=== PATIENT | male | born 1950 | race Caucasian/White ===

== ENCOUNTER → 2021-03-19 | Outpatient (CLI) | payer MEDICARE, OTHER ==
[~2021-03-19] MED LIST: BUMETANIDE1 MG PO; BUMETANIDE2 MG PO; CEFDINIR300 MG PO; COLACE 100MG C100 MG PO; COMBIVENT0.074 GM/I INH; DIAMOX 250 MG250 MG PO; ECOTRIN81 MG PO; ELIQUIS2.5 MG PO; FEOSOL325 MG PO; FOLIC ACID 1 MG1 MG PO; HYDRALAZINE HC100 MG PO; HYDRALAZINE HCL50 MG PO; IMDUR ER TAB 6060 MG PO; K-DUR TAB 20 M20 MEQ PO; KLONOPIN TAB 00.5 MG PO; LASIX20 MG PO; LASIX40 MG PO; LEVEMIR100 UNIT/1 SQ; LIPITOR TAB 2020 MG PO; LOPRESSOR 25 MG25 MG PO; LOPRESSOR50 MG PO; MICROZIDE12.5 MG PO; NITROSTAT0.4 MG SL; NOVOLOG 10100 UNITS1 SC; NOVOLOG100 UNIT/1 SQ; PAXIL40 MG PO; PROTONIX40 MG PO; SENNA8.6 MG PO; SOTALOL80 MG PO; TYLENOL 500 MG500 MG PO; XARELTO10 MG PO
== END ==
LOC: KOH-I 11:57
DX: R06.02 Shortness of breath (principal); J40 Bronchitis, not specified as acute or chronic; R50.9 Fever, unspecified
CPT/HCPCS: 71046

== ENCOUNTER → 2021-11-27 | Outpatient (CLI) | payer MEDICARE, OTHER | LOC: KOH-I 11:10 | DX: R05.9 Cough, unspecified (principal); Z86.16 Personal history of COVID-19 | CPT/HCPCS: 71046 ==